=== PATIENT | female | born 1965 | race Caucasian/White ===

== ENCOUNTER 2018-09-02 00:25 | Emergency (ER) | payer OTHER ==
[~2018-09-02] VITALS: Ht 167.6 cm; Wt 72.6 kg
[2018-09-02 00:54] VITALS: BP 113/71
--- NOTE | 2018-09-02 01:11 | NUR ---
WILBER. HAVING R FOOT PAIN AND KNEE PAIN, HURT WHILE WALKING. -GLF AOX4. VSS. AMBULATORY
== END 2018-09-02 01:53 | disposition home or self-care (01) ==
LOC: ER 00:31
DX: S90.31XA Contusion of right foot, initial encounter (principal); Z90.89 Acquired absence of other organs; W18.09XA Striking against other object with subsequent fall, initial encounter; Y93.01 Activity, walking, marching and hiking; Y92.89 Other specified places as the place of occurrence of the external cause; Y99.8 Other external cause status
CPT/HCPCS: 73630-TC